=== PATIENT | female | born 2000 ===

== ENCOUNTER 2023-01-06 07:14 | Observation (INO) | payer MEDICAID, OTHER ==
[~2023-01-06] VITALS: Ht 165.1 cm; Wt 68.0 kg
[2023-01-06] MEDS ORDERED: PREN-96 PO (07:37)
[2023-01-06 08:56] LABS: Urine Bacteria NONE SEEN /hpf (None Seen); Urine Blood 3+ /uL (Negative); Urine Clarity HAZY (Clear); Urine Color Yellow (Yellow); Urine Mucus FEW (None Seen); Urine Protein, UAD 1+ (Negative); Urine Specific Gravity 1.017 (1.001-1.035); Urine Urobilinogen Normal (Negative); Urine WBC 90 /hpf (0 - 5); Urine pH 7.5 (5.0-8.0)
[2023-01-06] MEDS ORDERED: TERBUTALINE SULFATE 1 MG/ML 1ML VIAL SC ONE ×2 (09:00→09:11)
[2023-01-06 09:05] LABS: COVID19 ANTIGEN SOFIA FIA NEGATIVE (NEGATIVE)
== END 2023-01-06 10:49 | disposition home or self-care (01) ==
LOC: UNDOADMOB 07:14 → LDRP 07:14 → UNDODISOB 10:49
PROVIDERS: ADMIT Obstetrics & Gynecology; ATTEND Obstetrics & Gynecology
DX: O46.93 Antepartum hemorrhage, unspecified, third trimester (principal); Z20.822 Contact with and (suspected) exposure to COVID-19; O60.03 Preterm labor without delivery, third trimester; Z3A.33 33 weeks gestation of pregnancy
CPT/HCPCS: 36415; 59025; 76805; 81001; 81002; 87426; 94760; 96372; G0378; J3105